=== PATIENT | female | born 1995 | race Caucasian/White ===

== ENCOUNTER 2017-12-25 18:01 | Emergency (ER) | payer OTHER ==
[~2017-12-25] VITALS: Ht 144.8 cm; Wt 42.2 kg
[2017-12-25 18:49] LABS: BASOPHILS % 0.7 % (0.0-1.0); EOSINOPHILS # (AUTO) 0.1 (0.0-0.4); HEMATOCRIT 39.1 % (34.2-44.1); HEMOGLOBIN 13.2 g/dL (12.0-16.0); LYMPHOCYTES # (AUTO) 1.9 (1.0-3.2); LYMPHOCYTES % 32.2 % (18.0-39.1); MEAN CORPUSCULAR HEMOGLOBIN 31.2 pg (28-32); MEAN CORPUSCULAR HGB CONC 33.8 g/dL (31-35); MEAN CORPUSCULAR VOLUME 92.4 fL (81-99); MONOCYTES # (AUTO) 0.5 (0.2-0.8); MONOCYTES % 8.4 % (4.4-11.3); NEUTROPHILS # (AUTO) 3.3 (2.1-6.9); NEUTROPHILS % 57.4 % (38.7-80.0); PLATELET COUNT 255 x10e3/uL (140-360); RED BLOOD COUNT 4.23 x10e6/uL (3.6-5.1); RED CELL DISTRIBUTION WIDTH 11.9 % (11.7-14.4)
[2017-12-25 19:00] LABS: BILIRUBIN,URINE NEGATIVE (NEGATIVE); CLARITY,URINE SL CLOUDY (CLEAR); COLOR,URINE YELLOW (YELLOW); KETONES,URINE NEGATIVE (NEGATIVE); LEUKOCYTE ESTERASE ,URINE NEGATIVE (NEGATIVE); NITRITE,URINE NEGATIVE (NEGATIVE); PROTEIN,URINE DIPSTICK NEGATIVE (NEGATIVE); URINE UROBILINOGEN 0.2 mg/dL (0.2 - 1)
[2017-12-25 19:06] LABS: ANION GAP 14.8 mmol/L (8-16); BLOOD UREA NITROGEN 12 mg/dL (7-26); BUN/CREATININE RATIO 14 (6-25); CALCIUM 9.3 mg/dL (8.4-10.2); CARBON DIOXIDE 22 mmol/L (22-29); CHLORIDE 107 mmol/L (98-107); CREATININE, SERUM 0.84 mg/dL (0.57-1.11); EST GLOMERULAR FILTRATION RATE > 60 ML/MIN (60-); GLUCOSE 117 mg/dL (74-118); POTASSIUM 3.8 mmol/L (3.5-5.1); SODIUM 140 mmol/L (136-145)
[2017-12-25 19:09] LABS: BACTERIA,URINE MODERATE /HPF; EPITHELIAL CELLS,URINE FEW /LPF; WBC,URINE (MAN) 0-5 /HPF (0-5)
--- NOTE | 2017-12-25 20:22 | Diagnostic Imaging Report ---
EXAM: Obstetric Pelvic Ultrasound INDICATION: \S\r/o ectopic \[id number] \S\2002 COMPARISON: None TECHNIQUE: Transabdominal and transvaginal evaluation of the pelvis was performed in the transverse and longitudinal planes. CLINICAL HISTORY: 22 year old G4, P2; last menstrual period: 11/12/2017. HCG 42.36 FINDINGS: Uterus: Orientation: Anteverted Size: 8.4 x 4.1 x 5.6 cm, normal Mass: None Cervix: Normal Gestational Sac: None visualized. Yolk sac: None visualized Embryo/Fetus: None visualized Endometrial stripe: 0.4 cm. Homogeneous echotexture, without focal thickening Right ovary Size: 3.0 x 1.6 x 1.7 cm Mass/Cyst: None Left ovary Size: 2.8 x 1.5 x 2.0 cm Mass/Cyst: None Cul-de-sac: No free fluid IMPRESSION: 1. No evidence of intrauterine or ectopic Signed by: Dr. Israel Braden M.D. on 12/25/2017 8:19 PM
[2017-12-25 20:52] VITALS: BP 116/74
== END 2017-12-25 20:54 | disposition home or self-care (01) ==
LOC: ER 18:01
DX: O20.9 Hemorrhage in early pregnancy, unspecified (principal); O20.0 Threatened abortion
CPT/HCPCS: 36415; 76817; 80048; 81001; 84702; 85025; 99283